=== PATIENT | male | born 1980 | race Caucasian/White ===

== ENCOUNTER 2022-07-06 16:02 | Emergency (ER) | payer OTHER ==
[2022-07-06 16:32] LABS: Absolute Neutrophil Ct (ANC) 2.93 x10^3/uL (1.4-6.9); BASOPHIL % 0.8 % (0.0-0.4); Basophil (Absolute #) 0.04 x10^3/uL (0-0.4); Eosinophil % 0.4 % (0.00-5.0); Eosinophil (Absolute #) 0.02 x10^3/uL (0-0.5); Hematocrit 44.5 % (42-50); Hemoglobin 15.2 g/dL (12.5-18.0); IMMATURE GRAN # 0.02 x10^3u/L (0.00-0.03); IMMATURE GRAN % 0.4 % (0.00-0.4); Lymphocyte (Absolute #) 1.25 x10^3/uL (1.0-4.6); Lymphocytes % 24.8 % (24.0-44.0); Mean Cell Volume 91.8 fL (78-100); Mean Corpuscular Hemoglobin 31.3 pg (26-32); Mean Corpuscular Hgb Concent. 34.2 g/dL (32-36); Monocyte (Absolute #) 0.78 x10^3/uL (0.0-1.3); Monocytes % 15.5 % (0.0-12.0); Neutrophil % 58.1 % (36.0-66.0); Platelet Count 245 x10^3/uL (150-450); Red Blood Count 4.85 x10^6/uL (4.1-5.6); Red Cell Distribution Width 13.9 % (11.5-14.0)
--- NOTE | 2022-07-06 16:44 | ERPHSYRPT ---
- History of Present Illness Time Seen by Provider: 07/06/22 16:25 Source: patient, police Exam Limitations: intoxication Patient Subjective Stated Complaint: Patient arrived in ER escorted by an officer, Álvaro Fleming. Officer states the patient is here for medical clearance. The patient gave this nurse verbal permission for treatment. Triage Nursing Assessment: Patient ambulated into ER without difficulties. He is alert and oriented but mumbles and goes off topic often; can become tearful at times. He is cooperative with staff; polite. No SOB. Abrasions noted to left side of nose/to left cheek; patient reports they are scratches from his . ABIEL WNL without difficulties at this time; reports right hip surgery in Mar 2022. Physician History: Patient is a 42-year-old male who is brought in by the police for medical clearance prior to incarceration. Apparently there were domestic problems involving a 13-year-old stepdaughter and . He is cooperative he is for the most part alert he does tend to wander in his speech. He has some scratches to the left side of the face he is cooperative. Police report to us that his blood alcohol level was greater than 200. Timing/Duration: today Associated Symptoms: denies symptoms Allergies/Adverse Reactions: No Known Drug Allergies Allergy (Verified 07/06/22 16:14) Home Medications: No Reportable Medications [No Reported Medications] 07/06/22 [History] Hx Tetanus, Diphtheria Vaccination/Date Given: Yes Hx Influenza Vaccination/Date Given: No Hx Pneumococcal Vaccination/Date Given: No Immunizations Up to Date: Yes Travel Risk - International Travel Have you traveled outside of the country in past 3 weeks: No - Coronavirus Screening Are you exhibiting any of the following symptoms?: No Close contact with a COVID-19 positive Pt in past 14-21 Days: No - Vaccine Status Have you recieved a Covid-19 vaccination: Yes [employer] 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 - Review of Systems Constitutional: No Fever, No Chills Eyes: No Symptoms Ears, Nose, & Throat: No Symptoms Respiratory: No Cough, No Dyspnea Cardiac: No Chest Pain, No Edema, No Syncope Abdominal/Gastrointestinal: No Abdominal Pain, No Nausea, No Vomiting, No Diarrhea Genitourinary Symptoms: No Dysuria Musculoskeletal: No Back Pain, No Neck Pain Skin: No Rash Neurological: No Dizziness, No Focal Weakness, No Sensory Changes Psychological: No Symptoms Endocrine: No Symptoms All Other Systems: Reviewed and Negative - Past Medical History Pertinent Past Medical History: Yes Endocrine Medical History: Diabetes Type II, Hypothyroidism GI Medical History: GERD Psycho-Social History: Depression Other Medical History: Patient is unable or unwilling to give complete medical history at this time. He states, "let's just let it go" anytime this nurse asks for any further medical history. He indicates he is supposed to be on prescr iption medications but isn't currently taking any of them. - Past Surgical History Past Surgical History: Yes Musculoskeletal: Other Other Surgical History: right hip surgery in Mar 2022, "2 mouth surgeries" - Social History Smoking Status: Never smoker Exposure to second hand smoke: No Drug Use: none - Nursing Vital Signs Nursing Vital Signs: Initial Vital Signs Temperature 98 F 07/06/22 16:13 Pulse Rate 102 H 07/06/22 16:13 Respiratory Rate 18 07/06/22 16:13 Blood Pressure 137/92 07/06/22 16:13 O2 Sat by Pulse Oximetry 95 07/06/22 16:13 Pain Scale Pain Intensity 0 - Physical Exam General Appearance: mild distress Eye Exam: PERRL/EOMI, eyes nml inspection Ears, Nose, Throat Exam: normal ENT inspection, TMs normal, pharynx normal, moist mucous membranes Neck Exam: normal inspection, non-tender, supple, full range of motion Respiratory Exam: normal breath sounds, lungs clear, No respiratory distress Cardiovascular Exam: regular rate/rhythm, normal heart sounds, normal peripheral pulses Gastrointestinal/Abdomen Exam: soft, normal bowel sounds, No tenderness, No mass Back Exam: normal inspection, normal range of motion, No CVA tenderness, No vertebral tenderness Extremity Exam: normal inspection, normal range of motion, pelvis stable Neurologic Exam: alert, oriented x 3, cooperative, normal mood/affect, nml cerebellar function, nml station & gait, sensation nml, depressed mood/affect, No motor deficits Skin Exam: normal color, warm, dry, other SpO2 Interpretation: normal SpO2: 95 O2 Delivery: Room Air - Course Nursing assessment & vital signs reviewed: Yes Ordered Tests: Active Orders 24 hr Category Date Time Status Clean Catch Urine Specimen STAT Care 07/06/22 16:14 Active CBC W DIFF Stat Lab 07/06/22 16:30 Completed CMP Stat Lab 07/06/22 16:30 Completed ETHYL ALCOHOL Stat Lab 07/06/22 16:30 Completed UA W/RFX UR CULTURE Stat Lab 07/06/22 16:19 Completed Urine Triage Profile Stat Lab 07/06/22 16:19 Completed Lab/Rad Data: Laboratory Result Diagrams 07/06/22 16:30 07/06/22 16:30 Laboratory Results 07/06/22 07/06/22 07/06/22 Range/Units 16:30 16:30 16:19 WBC 5.0 (4.0-10.5) x10^3/uL RBC 4.85 (4.1-5.6) x10^6/uL Hgb 15.2 (12.5-18.0) g/dL Hct 44.5 (42-50) % MCV 91.8 (78-100) fL MCH 31.3 (26-32) pg MCHC 34.2 (32-36) g/dL RDW 13.9 (11.5-14.0) % Plt Count 245 (150-450) x10^3/uL MPV 10.0 (7.5-11.0) fL Gran % 58.1 (36.0-66.0) % Immature Gran % (Auto) 0.4 (0.00-0.4) % Nucleat RBC Rel Count 0.0 (0.00-0.1) % Eos # (Auto) 0.02 (0-0.5) x10^3/uL Immature Gran # (Auto) 0.02 (0.00-0.03) x10^3u/L Absolute Lymphs (auto) 1.25 (1.0-4.6) x10^3/uL Absolute Monos (auto) 0.78 (0.0-1.3) x10^3/uL Absolute Nucleated RBC 0.00 (0.00-0.01) x10^3u/L Lymphocytes % 24.8 (24.0-44.0) % Monocytes % 15.5 H (0.0-12.0) % Eosinophils % 0.4 (0.00-5.0) % Basophils % 0.8 (0.0-0.4) % Absolute Granulocytes 2.93 (1.4-6.9) x10^3/uL Basophils # 0.04 (0-0.4) x10^3/uL Sodium 139 (137-145) mmol/L Potassium 4.4 (3.5-5.1) mmol/L Chloride 94 L (98-107) mmol/L Carbon Dioxide 23 (22-30) mmol/L Anion Gap 25.3 H (5-15) MEQ/L BUN 8 L (9-20) mg/dL Creatinine 0.85 (0.66-1.25) mg/dL Estimated GFR > 60.0 ML/MIN Glucose 355 H (74-106) mg/dL Calcium 8.9 (8.4-10.2) mg/dL Total Bilirubin 0.60 (0.2-1.3) mg/dL AST 130 H (17-59) U/L ALT 106 H (0-50) U/L Alkaline Phosphatase 113 (38-126) U/L Serum Total Protein 8.3 H (6.3-8.2) g/dL Albumin 4.8 (3.5-5.0) g/dL Urine Color (Yellow) Urine Appearance (Clear) Urine pH (4.6-8.0) Ur Specific [place] (1.005-1.030) Urine Protein (Negative) Urine Glucose (UA) (Negative) mg/dL Urine Ketones (Negative) Urine Blood (Negative) Urine Nitrite (Negative) Urine Bilirubin (Negative) Urine Urobilinogen (0.2) mg/dL Ur Leukocyte Esterase (Negative) U Hyaline Cast (Auto) (0-2) /LPF Urine Microscopic RBC (0-5) /HPF Urine Microscopic WBC (0-5) /HPF Ur Epithelial Cells (None Seen) /HPF Urine Bacteria (None Seen) /HPF Urine Culture Reflexed (NO) Urine Opiates Level NEGATIVE (NEGATIVE) Ur Methadone NEGATIVE (NEGATIVE) Urine Barbiturates NEGATIVE (NEGATIVE) Ur Phencyclidine (PCP) NEGATIVE (NEGATIVE) Urine Amphetamine NEGATIVE (NEGATIVE) U Benzodiazepine Level NEGATIVE (NEGATIVE) Urine Cocaine NEGATIVE (NEGATIVE) Urine Marijuana (THC) NEGATIVE (NEGATIVE) Ethyl Alcohol 285 H (0-10) mg/dL 07/06/22 Range/Units 16:19 WBC (4.0-10.5) x10^3/uL RBC (4.1-5.6) x10^6/uL Hgb (12.5-18.0) g/dL Hct (42-50) % MCV (78-100) fL MCH (26-32) pg MCHC (32-36) g/dL RDW (11.5-14.0) % Plt Count (150-450) x10^3/uL MPV (7.5-11.0) fL Gran % (36.0-66.0) % Immature Gran % (Auto) (0.00-0.4) % Nucleat RBC Rel Count (0.00-0.1) % Eos # (Auto) (0-0.5) x10^3/uL Immature Gran # (Auto) (0.00-0.03) x10^3u/L Absolute Lymphs (auto) (1.0-4.6) x10^3/uL Absolute Monos (auto) (0.0-1.3) x10^3/uL Absolute Nucleated RBC (0.00-0.01) x10^3u/L Lymphocytes % (24.0-44.0) % Monocytes % (0.0-12.0) % Eosinophils % (0.00-5.0) % Basophils % (0.0-0.4) % Absolute Granulocytes (1.4-6.9) x10^3/uL Basophils # (0-0.4) x10^3/uL Sodium (137-145) mmol/L Potassium (3.5-5.1) mmol/L Chloride (98-107) mmol/L Carbon Dioxide (22-30) mmol/L Anion Gap (5-15) MEQ/L BUN (9-20) mg/dL Creatinine (0.66-1.25) mg/dL Estimated GFR ML/MIN Glucose (74-106) mg/dL Calcium (8.4-10.2) mg/dL Total Bilirubin (0.2-1.3) mg/dL AST (17-59) U/L ALT (0-50) U/L Alkaline Phosphatase (38-126) U/L Serum Total Protein (6.3-8.2) g/dL Albumin (3.5-5.0) g/dL Urine Color Yellow (Yellow) Urine Appearance Clear (Clear) Urine pH 6.0 (4.6-8.0) Ur Specific [place] 1.010 (1.005-1.030) Urine Protein Negative (Negative) Urine Glucose (UA) >=1000 A (Negative) mg/dL Urine Ketones Trace A (Negative) Urine Blood Negative (Negative) Urine Nitrite Negative (Negative) Urine Bilirubin Negative (Negative) Urine Urobilinogen 0.2 (0.2) mg/dL Ur Leukocyte Esterase Negative (Negative) U Hyaline Cast (Auto) NONE SEEN (0-2) /LPF Urine Microscopic RBC 0-2 (0-5) /HPF Urine Microscopic WBC 0-2 (0-5) /HPF Ur Epithelial Cells None Seen (None Seen) /HPF Urine Bacteria None Seen (None Seen) /HPF Urine Culture Reflexed NO (NO) Urine Opiates Level (NEGATIVE) Ur Methadone (NEGATIVE) Urine Barbiturates (NEGATIVE) Ur Phencyclidine (PCP) (NEGATIVE) Urine Amphetamine (NEGATIVE) U Benzodiazepine Level (NEGATIVE) Urine Cocaine (NEGATIVE) Urine Marijuana (THC) (NEGATIVE) Ethyl Alcohol (0-10) mg/dL - Progress Progress: unchanged Progress Note: 07/06/22 17:24 Patient's blood sugar is 355 we will give him 10 units of 70/30 subcu and we will medically clear him. Medical Desision Making - Risk of complications Low Risk: Low risk of morbidity from additional dx testing or treatment - Departure Departure Disposition: [facility] Clinical Impression: Hyperglycemia, Alcoholic intoxication Condition: Stable Critical Care Time: No
[2022-07-06 16:46] LABS: Appearance Clear (Clear); Bacteria None Seen /HPF (None Seen); Bilirubin Negative (Negative); Blood Negative (Negative); Epithelial Cells None Seen /HPF (None Seen); Glucose, Urine >=1000 mg/dL (Negative); Hyaline Casts NONE SEEN /LPF (0-2); Ketones Trace (Negative); Leukocyte Esterase Negative (Negative); Nitrite Negative (Negative); Protein,Urine Dip Negative (Negative); RBC 0-2 /HPF (0-5); Urobilinogen 0.2 mg/dL (0.2); WBC 0-2 /HPF (0-5)
[2022-07-06 16:49] LABS: ADD URINE CULTURE? NO (NO)
[2022-07-06 16:53] LABS: ALBUMIN 4.8 g/dL (3.5-5.0); ALKALINE PHOSPHATASE 113 U/L (38-126); ANION GAP 25.3 MEQ/L (5-15); BLOOD UREA NITROGEN 8 mg/dL (9-20); CHLORIDE 94 mmol/L (98-107); Calcium 8.9 mg/dL (8.4-10.2); Carbon Dioxide 23 mmol/L (22-30); Creatinine 1 0.85 mg/dL (0.66-1.25); EST GLOMERULAR FILTRATION RATE > 60.0 ML/MIN; ETHYL ALCOHOL 285 mg/dL (0-10); Glucose 355 mg/dL (74-106); Potassium 4.4 mmol/L (3.5-5.1); SGOT/AST 130 U/L (17-59); SGPT/ALT 106 U/L (0-50); SODIUM 139 mmol/L (137-145); Total Protein 8.3 g/dL (6.3-8.2)
[2022-07-06 16:57] LABS: Amphetamine,Urine NEGATIVE (NEGATIVE); Barbiturate,Urine NEGATIVE (NEGATIVE); Benzodiazepine,Urine NEGATIVE (NEGATIVE); Cocaine,Urine NEGATIVE (NEGATIVE); Methadone,Urine NEGATIVE (NEGATIVE); Opiate,Urine NEGATIVE (NEGATIVE); PCP,Urine NEGATIVE (NEGATIVE); THC,Urine NEGATIVE (NEGATIVE)
[2022-07-06 17:19] VITALS: BP 130/90; PULSE 90
[2022-07-06 17:21] VITALS: O2SAT 95
[2022-07-06] MEDS ORDERED: Novolin 70/30 SQ ONE (17:26)
== END 2022-07-06 17:51 ==
LOC: ED 16:02
DX: Z02.89 Encounter for other administrative examinations (principal); E11.65 Type 2 diabetes mellitus with hyperglycemia; F10.129 Alcohol abuse with intoxication, unspecified; Y90.8 Blood alcohol level of 240 mg/100 ml or more
CPT/HCPCS: 36415; 80053; 80307; 81001; 82077; 85025; 96372; 99282; J1815